=== PATIENT | female | born 1995 | race Caucasian/White ===

== ENCOUNTER 2016-12-20 02:06 | Observation (INO) ==
[2016-12-20] MEDS ORDERED: ONDANSETRON 4 MG/2 ML VIAL ONE (02:31)
[2016-12-20] MEDS ORDERED: ONDANSETRON 4 MG/2 ML VIAL IV STA (02:33)
[2016-12-20] MEDS ORDERED: SODIUM CHLORIDE 0.9% 1,000 ML IV STA ×2 (02:33→04:17)
[2016-12-20] MEDS ORDERED: DIPHENOXYLATE/ATROPINE 2.5-0.025 MG TABLET PO STA (02:40)
[2016-12-20] MEDS ORDERED: DIPHENOXYLATE/ATROPINE 2.5-0.025 MG TABLET ONE (02:43)
[2016-12-20 02:47] LABS: Basophils # 0.1 10*3/uL (0.0-0.2); Basophils % 0.2 % (0.0-0.8); Eosinophils # 0.1 10*3/uL (0.0-0.87); Eosinophils % 0.4 % (0.00-10.9); Hematocrit 43.1 VOL% (35.7-47.0); Hemoglobin 15.5 GM/DL (12.0-16.0); Immature Granulocytes % 0.5 %; Immature Granulocytes Absolute 0.11 #; Lymphocytes # 1.6 10*3/uL (1.4-4.0); Lymphocytes % 7.9 % (21.3-54.2); Mean Corpuscular Hemoglobin 33 PG (27-34); Mean Corpuscular Volume 91.5 FL (87-102); Mean Platelet Volume 10.7 FL (9.6-12.0); Monocytes % 4.9 % (1.7-12.7); Neutrophils # 17.6 10*3/uL (1.4-7.4); Neutrophils % 86.1 % (38.7-73.9); Platelet Count 271 T/CUMM (130-400); Red Blood Count 4.71 MC/CUMM (3.8-5.5); Red Cell Distribution Width 11.9 % (9.3-17.3); White Blood Count 20.5 T/CUMM (4-12)
[2016-12-20 02:58] LABS: Calcium 9.2 MG/DL (8.5-10.1); Magnesium 1.6 MG/DL (1.8-2.4); Osmolality,Calculated 284.3 MOS/KG (273-304); Potassium 3.5 MMOL/L (3.5-5.1)
--- NOTE | 2016-12-20 03:20 | Emergency Department Note ---
Chang Burdick Emily, am scribing for, and in the presence of, Grey Arenas MD 02: 53. Dagoberto Burdick Robert M, MD, personally performed the services described in this documentation, ascribed by Britt Downing in my presence, and it is both accurate and complete 320 . Arrival - Arrival Chief Complaint: Nausea/Vomiting/Diarrhea Stated Complaint: throwing up blood diarrhea ED Nursing Triage Note: Pt to triage via wheelchair with c/o n/v/d. Pt states she is throwing up blood. Mode of Arrival: Wheelchair Limitations: No Limitations Source: Patient - History of Present Illness HPI Narrative: Pt is a 21 y/o female who came to ED with c/o N/V/D and hematemesis that suddenly onset at midnight. Pt notes having abdominal pain, as well. No other complaint/pain in ED. Onset (ago): hour(s) Consistency: constant Severity: mild, moderate Severity scale (1-10): 4 Quality: aching Allergies/Adverse Reactions: Allergies Allergy/AdvReac Type Severity Reaction Status Date / Time No Known Allergies Allergy Unverified 12/20/16 02:13 Home Medications: Home Medications Medication Instructions Recorded Confirmed Type No Known Home Medications [No 12/20/16 12/20/16 History Known Home Medications] Review of System - Review of System 12 point system: reviewed and no additional remarkable complaints except as stated - Review of System Constitutional: Absent: chills, fever Respiratory: Absent: respiratory distress Cardiovascular: Absent: chest pain Gastrointestinal: Present: abdominal pain, nausea, vomiting, diarrhea, hematemesis Musculoskeletal: Absent: arm pain, back pain, leg pain, neck pain Skin: Absent: rash Neurological: Absent: headache Psychiatric: Absent: anxiety Medical,Surgical,& Family Hx - Medical History Hematology: History of: Anemia - Surgical History Abdominal Surgeries: Surgical HX of: Appendectomy (2008) - Family History Family History: noncontributory Family History: Reports;: Family Diabetes (father, grandmother), Family Hypertension (mother), Family Stroke (grandparents) - Social History Smoking Status: Current every day smoker Frequency of Alcohol Use: None Type of Drug Use: Marijuana Marital Status: Single Lives With:: Parent Functional capacity: independent ambulation Exam Vital Signs: Vital Signs Temperature 97.6 F 12/20/16 02:17 Pulse Rate 72 12/20/16 03:12 Respiratory Rate 18 12/20/16 03:12 Blood Pressure 102/78 12/20/16 03:12 O2 Sat by Pulse Oximetry 98 12/20/16 03:12 - General General appearance: alert, in no apparent distress, other (foul odor) - Head Head exam: Present: atraumatic, normocephalic - Eye Eye exam: Present: PERRL, EOMI - ENT ENT exam: Present: mucous membranes dry. Absent: mucous membranes moist - Neck Neck exam: Present: full ROM. Absent: tenderness - Chest Chest inspection: Present: symmetric chest wall rise. Absent: tenderness - Respiratory Respiratory exam: Present: normal lung sounds bilaterally. Absent: respiratory distress - Cardiovascular Cardiovascular exam: Present: regular rate, normal rhythm, normal heart sounds - Abdominal Exam Abdominal exam: Present: soft, tenderness (diffusely). Absent: distention, guarding, rebound - Extremities Exam Extremities exam: Present: full ROM. Absent: tenderness, pedal edema - Neurological Exam Neurological exam: Present: alert, oriented X3, CN II-XII intact. Absent: motor sensory deficit - Psychiatric Psychiatric exam: Present: normal affect, normal mood - Skin Skin exam: Present: warm, dry, pallor. Absent: normal color Course - Consultations Consultation #1: We will admit to observation hospitalist service Dr. Levin notified Time: 03:41 Results - Labs CBC & BMP: 12/20/16 02:21 12/20/16 02:21 Lab Results: I have reviewed the patients labs Labs: Lab Results WBC 20.5 T/CUMM (4-12) H 12/20/16 02:21 RBC 4.71 MC/CUMM (3.8-5.5) 12/20/16 02:21 Hgb 15.5 GM/DL (12.0-16.0) 12/20/16 02:21 Hct 43.1 VOL% (35.7-47.0) 12/20/16 02:21 MCV 91.5 FL (87-102) 12/20/16 02:21 MCH 33 PG (27-34) 12/20/16 02:21 MCHC 36.0 GM/DL (32-36) 12/20/16 02:21 RDW 11.9 % (9.3-17.3) 12/20/16 02:21 Plt Count 271 T/CUMM (130-400) 12/20/16 02:21 MPV 10.7 FL (9.6-12.0) 12/20/16 02:21 Neut % (Auto) 86.1 % (38.7-73.9) H 12/20/16 02:21 Lymph % (Auto) 7.9 % (21.3-54.2) L 12/20/16 02:21 Darke % (Auto) 4.9 % (1.7-12.7) 12/20/16 02:21 Eos % (Auto) 0.4 % (0.00-10.9) 12/20/16 02:21 Baso % (Auto) 0.2 % (0.0-0.8) 12/20/16 02:21 Neut # (Auto) 17.6 10*3/uL (1.4-7.4) H 12/20/16 02:21 Lymph # (Auto) 1.6 10*3/uL (1.4-4.0) 12/20/16 02:21 Darke # (Auto) 1.0 10*3/uL (0.11-0.8) H 12/20/16 02:21 Eos # (Auto) 0.1 10*3/uL (0.0-0.87) 12/20/16 02:21 Baso # (Auto) 0.1 10*3/uL (0.0-0.2) 12/20/16 02:21 Immature Gran % 0.5 % 12/20/16 02:21 Nucleated RBC % 0.0 /100WBC 12/20/16 02:21 Immature Gran # 0.11 # 12/20/16 02:21 Nucleated RBCs # 0.00 10*3/uL 12/20/16 02:21 Sodium 141 MMOL/L (136-145) 12/20/16 02:21 Potassium 3.5 MMOL/L (3.5-5.1) 12/20/16 02:21 Chloride 105 MMOL/L (98-107) 12/20/16 02:21 Carbon Dioxide 25 MMOL/L (21-32) 12/20/16 02:21 Anion Gap 14.5 MMOL/L (5.0-15.0) 12/20/16 02:21 BUN 12 MG/DL (7-18) 12/20/16 02:21 Creatinine 1.00 MG/DL (0.55-1.02) 12/20/16 02:21 GFR Calculation 73 ML/MIN 12/20/16 02:21 BUN/Creatinine Ratio 12.00 RATIO (6.00-20.00) 12/20/16 02:21 Glucose 178 MG/DL (74-106) H 12/20/16 02:21 Calculated Osmolality 284.3 MOS/KG (273-304) 12/20/16 02:21 Calcium 9.2 MG/DL (8.5-10.1) 12/20/16 02:21 Magnesium 1.6 MG/DL (1.8-2.4) L 12/20/16 02:21 Disposition Clinical Impression: Viral gastroenteritis, Dehydration Case discussed with: patient, patient's family Disposition: Still a Patient Condition: Stable Time of Disposition: 03:41
[2016-12-20] MEDS ORDERED: PANTOPRAZOLE 40 MG VIAL IV STA (03:38)
[2016-12-20] MEDS ORDERED: PANTOPRAZOLE 40 MG VIAL IV ONE (03:38)
[2016-12-20] MEDS ORDERED: diphenhydrAMINE CAP 25 MG CAPSULE PO PRN (03:50)
[2016-12-20] MEDS ORDERED: DOCUSATE SODIUM 100 MG CAPSULE PO PRN (03:50)
[2016-12-20] MEDS ORDERED: ZALEPLON 5 MG CAPSULE PO PRN (03:50)
[2016-12-20] MEDS ORDERED: guaiFENesin/DM ER 600-30 MG TABLET PO PRN (03:50)
[2016-12-20] MEDS ORDERED: ACETAMINOPHEN 325 MG TABLET PO PRN (03:50)
[2016-12-20] MEDS ORDERED: NICOTINE 21 MG/24 HR PATCH TRANSDERM PRN (03:50)
[2016-12-20] MEDS ORDERED: MAGNESIUM SULF RIDER 2 GM in PREMIX 1 EACH IV STA (04:06)
[2016-12-20] MEDS ORDERED: MAGNESIUM SULF RIDER 0 ML IV ONE (04:19)
--- NOTE | 2016-12-20 04:36 | Hospitalist History & Physical ---
Assessment and Plan (1) Intractable nausea and vomiting Status: Acute Assessment and plan: Patient denies surreptitious vomiting. She is underweight but that is concerned. Surreptitious vomiting people with eating disorder. Electrolytes are not abnormal therefore chronicity surreptitious vomiting is unlikely. I will check a 4 AM cortisol for possibility of adrenal insufficiency however his high blood sugars 178 I would expect a low sugar than that. We will also check a level for possibility of hyperemesis gravidarum. I did discuss the case with Dr. Arenas to hold off on any radiograph until the test is known. Current Visit: Yes (2) Diarrhea Status: Acute Assessment and plan: This with the program above nausea and vomiting raises possibility of viral gastroenteritis. Norovarus the top of the list. Causes will be preformed bacterial toxin but patient denies eating any leftover food. Will check stool for WBC stool Hemoccult stool cultures to include Yersinia and Campylobacter. Patient should be kept on enteric precautions. Current Visit: Yes (3) Weight loss Status: Acute Assessment and plan: Patient is underweight because of which is unknown. She denies any eating disorders. Current Visit: Yes (4) Hypomagnesemia Status: Acute Current Visit: Yes (5) Leukocytosis Status: Acute Assessment and plan: It could be an acute infection it could be demargination of stress. She is a febrile with low. Hold off antibiotics pending further evaluation. She is known to have an abdominal pelvic CT scan and a chest x-ray if test is negative. Current Visit: Yes (6) Viral gastroenteritis Status: Acute Assessment and plan: As above Current Visit: Yes History of Present Illness Chief complaint: New onset diarrhea/nausea/vomiting/defuse abdominal pain History of present illness: Ms. Jett is a 21 year old local female came to ED with c/o N/V/D and hematemesis that suddenly onset at midnight. Pt notes having abdominal pain, as well. She says she ate freshly cooked rice and yesterday evening unless last thing she remembers did not get anything else left over. She denies being but test is been ordered and is pending, denies any history of making herself vomit. There is no preceding elements of this nausea vomiting and abdominal pain and diarrhea. She has not had these events before. Denies any right has chills or documented fever. Home Medications Medication Instructions Recorded Confirmed Type No Known Home Medications [No 12/20/16 12/20/16 History Known Home Medications] Allergies Allergy/AdvReac Type Severity Reaction Status Date / Time No Known Allergies Allergy Unverified 12/20/16 02:13 Medical,Surgical,& Family Hx - Medical History Hematology: History of: Anemia - Surgical History Abdominal Surgeries: Surgical HX of: Appendectomy (2008) - Family History Family History: Reports;: Family Diabetes (father, grandmother), Family Hypertension (mother), Family Stroke (grandparents) - Social History Smoking Status: Current every day smoker Frequency of Alcohol Use: None Type of Drug Use: Marijuana Review of systems: 12 point system assessment was done. Significant for chief complaint is her presenting illness. Patient looks to be very pale. She is continuously retching as I am at her bedside she is underweight. The rest of assessment is now. Exam - Constitutional Vitals: Period Temp Pulse Resp BP Sys/Stauffer Pulse Ox Last 24 Hr 97.6 F-97.6 F 68-82 18-18 100-116/62-78 98-99 General appearance: mild distress, under weight, other (Generalized malaise) - Head Head exam: Present: normocephalic, atraumatic - Eye Eye exam: Present: EOMI, other (Anicteric sclera no conjunctival petechia) Pupils: Present: SHERMAN - ENT ENT exam: Present: normal oropharynx - Neck Neck exam: Present: normal inspection, other (Supple neck no adenopathy no thyromegaly) - Respiratory Respiratory exam: Present: clear to auscultation bilaterally - Cardiovascular Cardiovascular exam: Present: tachycardia, other (Sinus control) - GI/Abdominal GI/Abdominal exam: Present: normal bowel sounds, soft, other (Diffuse tenderness to guards her abdomen) - Extremities Exam Extremities exam: Present: full ROM - Neurological Exam Neurological exam: Present: alert, oriented X3, CN II-XII intact - Psychiatric Psychiatric exam: Present: other (Subdued affect generalized malaise) - Skin Skin exam: Present: warm, dry, other (Skin pallor) Results - Labs CBC & BMP: 12/20/16 02:21 12/20/16 02:21 Lab Results: I have reviewed the past 24 hour labs (Noted elevated white count of 20,500 with 86% neutrophils hemoglobin 15.5 g percent chemistry done has a normal sodium 141 potassium 3.5 with a normal bicarb of 25 BUN of 12 and creatinine 1.0 with normal liver profile admission was low at 1.6 heart sugar is 178 calculated osmolality of 284. test is pending still. Is been received in the laboratory studies.) - Diagnostic Findings Procedure: CT Abdomen and Pelvis: image reviewed by me (This was done in the ED please see report.)
[2016-12-20] MEDS: DEXTROSE 5% NACL 0.9% 1,000 ML IV SCH ×3 (05:45→20:29)
--- NOTE | 2016-12-20 06:55 | XRay Report ---
XR KUB Indication: Abdominal pain. Abdomen 2 views: No small bowel dilatation. Normal amount of stool and gas projects over the colon, without dilatation. No evidence of free air. No abnormal calcifications or masses. Impression: Negative bowel gas pattern. PROCEDURE INTERPRETED AT [facility] DEPARTMENT OF RADIOLOGY Final Report Signed by: Diego Wilson M.D.
--- NOTE | 2016-12-20 06:59 | CT Report ---
CT abdomen pelvis w con Indication: Generalized abdominal pain. CT ABDOMEN AND PELVIS WITH CONTRAST DLP: 347 mGy*cm. One or more of the following dose reduction techniques was used: Automated exposure control, adjustment of the mA and/or kV according the patient size, or use of iterative reconstruction techniques. Comparison: 07/18/2011 Technique: Axial CT images of the abdomen and pelvis were obtained with IV contrast; Omnipaque 350, 100 cc. Oral contrast was not administered. Abdomen: Normal heart size. Clear lung bases. Liver, spleen, pancreas, adrenal glands and kidneys appear grossly unremarkable. No bowel obstruction identified. No mesenteric edema, free fluid, free air or lymphadenopathy. Pelvis: In the right pelvis, there is a 23 x 17 mm fluid density collection appears to represent a cyst. The left pelvis, there is a 14 mm similar fluid collection, likely a cyst. No free fluid in the pelvis. Urinary bladder and uterus are unremarkable by CT. Rectosigmoid colon appears within normal limits well. Appendix not definitively seen. No right lower quadrant inflammation. As described in the preliminary report, left gonadal vein is slightly prominent in the left renal vein does appear somewhat compressed by the SMA. Impression: 1. Bilateral pelvic cystic structures, likely adnexal in nature. Appendix is not discretely identified but no secondary findings of appendicitis. 2. Prominence of the left gonadal vein appears secondary to minimal compression of the left renal vein from the SMA. PROCEDURE INTERPRETED AT [facility] DEPARTMENT OF RADIOLOGY Final Report Signed by: Diego Wilson M.D.
--- NOTE | 2016-12-20 08:13 | XRay Report ---
XR chest 2V Indication: Leukocytosis. Emesis. Chest 2 views: Heart size and mediastinal contour are normal. There is diffuse mild parabronchial thickening present. No focal infiltrates are shown. Pleural spaces are clear. Bones are intact. Impression: Mild airways disease such as bronchitis or viral syndrome. No focal pneumonia. PROCEDURE INTERPRETED AT [facility] DEPARTMENT OF RADIOLOGY Final Report Signed by: Diego Wilson M.D.
[2016-12-20] MEDS: PANTOPRAZOLE 40 MG TABLET PO SCH (09:00)
[2016-12-20] MEDS: ONDANSETRON 4 MG/2 ML VIAL IV PRN ×2 (10:22→15:36)
[2016-12-20 11:47] LABS: Basophils % 0.1 % (0.0-0.8); Hematocrit 36.5 VOL% (35.7-47.0); Immature Granulocytes % 0.3 %; Immature Granulocytes Absolute 0.03 #; Lymphocytes # 0.6 10*3/uL (1.4-4.0); Lymphocytes % 5.7 % (21.3-54.2); Mean Corpuscular HGB Conc 35.6 GM/DL (32-36); Mean Corpuscular Hemoglobin 33 PG (27-34); Mean Corpuscular Volume 92.2 FL (87-102); Monocytes # 0.4 10*3/uL (0.11-0.8); Neutrophils % 89.9 % (38.7-73.9); Red Blood Count 3.96 MC/CUMM (3.8-5.5)
[2016-12-20 11:52] LABS: Platelet Count 156 T/CUMM (130-400)
[2016-12-20] MEDS ORDERED: PHENOL 1.4% THROAT SPRAY 177 ML BOTTLE PO PRN (15:11)
[2016-12-20 15:35] LABS: Apearance,Urine Slightly Hazy (Clear); Bilirubin,Urine Negative (Negative); Blood, Urine Negative (Negative); Glucose,Urine (UA) Negative (Negative); Ketones,Urine Negative (Negative); Mucus,Urine Occasional /LPF (Occasional); Nitrite,Urine Negative (Negative); Protein,Urine Negative; RBC,Urine <1 /HPF (0-4); Squamous Epithelial Cell,Urine Few /HPF (0-10); Urine Color Yellow (Yellow); Urine Specific Gravity 1.012 (1.001-1.035); Urine Urobilinogen < 2.0 EU/DL (0.2-1.0); WBC,Urine 1 /HPF (0-6)
[2016-12-20] MEDS ORDERED: FAMOTIDINE 20 MG TABLET PO SCH (21:00)
[2016-12-21] MEDS: DEXTROSE 5% NACL 0.9% 1,000 ML IV SCH (03:36)
[2016-12-21 07:52] LABS: Calcium 7.6 MG/DL (8.5-10.1); Osmolality,Calculated 282.8 MOS/KG (273-304); Potassium 3.7 MMOL/L (3.5-5.1)
[2016-12-21] MEDS: PANTOPRAZOLE 40 MG TABLET PO SCH (08:04)
[2016-12-21 12:13] VITALS: BP 98/69
--- NOTE | 2016-12-21 13:21 | Discharge Summary ---
Hospital Course - Hospital Course Hospital Course: This patient was admitted on the above admit date with intractable nausea vomiting and diarrhea that was felt to be related to a gastroenteritis. On admission she was noted to have a leukocytosis with a white blood cell count of 20 but no evidence of bacterial infection have been identified. Further evaluation included a chest x-ray and a CT of the abdomen and pelvis. Chest x- ray did note mild airway disease such as bronchitis or viral syndrome but no focal pneumonia. The patient was not complaining of any pulmonary symptoms. She denied any having any shortness of breath or cough. CT abdomen and pelvis was negative for any acute pathology that could be the underlying etiology of her presenting symptoms. She was admitted and initiated on IV fluids. No antibiotics were given since there was no isolation of bacterial infection. Urinalysis was unremarkable. Stool culture obtained was negative for any enteric pathogens. Of note she did describe burning sensation in her lower esophagus that she felt was related to possible reflux. She was initiated on a PPI IV on admission but later we added Zantac at night. The following morning the patient reports marked improvement in her symptoms. She states that she has had no further episodes of nausea or vomiting. She reports that she can now lay on her right side when previously she could not do to nausea and the sensation of reflux. Her white blood cell count to the following day after hydration returned within normal limits at 10,000. Her diet was advanced and she tolerated this without any difficulty. No nausea no vomiting no diarrhea. Upon evaluation in the afternoon the patient states that she feels like she is ready for discharge with the understanding of taking her anti-reflux medications 1 in the morning(Protonix) and 1 in the evening (Zantac). She voiced an understanding and she will be discharged home to follow-up with her primary doctor for further evaluation of possible reflux that has contributed to her admission symptoms. - Time spent with patient Time with patient DS: Greater than 30 minutes Diagnosis - Discharge Diagnosis (1) Gastroenteritis Status: Resolved (2) Dehydration Status: Resolved (3) Intractable nausea and vomiting Status: Resolved (4) Diarrhea Status: Resolved (5) Hypomagnesemia Status: Resolved (6) Leukocytosis Status: Resolved Discharge Plan - Discharge Data Disposition: Disch To Home/Self Care Condition at Discharge: Stable Discharge Diet: advance to your usual diet Activity: resume usual activities as tolerated Hygiene: no restrictions Weight Bearing at Discharge: full weight bearing Driving: no restrictions Contact your physician if you experience:: fever over 101, Nausea/Vomiting, Bleeding - Discharge Medications New Pantoprazole Tab [Protonix Tab] 40 mg PO DAILY #30 tablet Famotidine Tab [Pepcid Tab] 20 mg PO BEDTIME #30 tablet Phenol 1.4% Throat [place] [Chloraseptic [place]] 5 spray PO Q2H PRN bottle PRN Reason: Sore Throat No Action raNITIdine HCl [Ranitidine HCl] 150 mg PO BEDTIME - Follow Up or Referral - Forms/Instructions Additional Discharge Instructions: Follow-up with primary care within 2 weeks of discharge for evaluation of GERD (Reflux). Exam - Constitutional Vitals: Period Temp Pulse Resp BP Sys/Stauffer Pulse Ox Last 24 Hr 97.7 F-98.6 F 66-79 16-22 90-107/45-69 94-100 Exam: General appearance: Underweight. NAD - Respiratory Respiratory exam: Present: clear to auscultation bilaterally - Cardiovascular Cardiovascular exam: Present: RRR without murmur - GI/Abdominal GI/Abdominal exam: Present: normal bowel sounds, soft - Extremities Exam Extremities exam: Present: full ROM - Neurological Exam Neurological exam: Present: alert, oriented X3, CN II-XII intact - Skin Skin exam: Present: warm, dry Discharge Results Procedures and tests throughout hospitalization: Pending Orders 12/20/16 04:36 Norovirus, Stool Routine 12/20/16 10:25 Stool Culture/Campy/Yersinia Routine 12/20/16 15:20 Urine Culture Stat Labs on day of discharge: Labs from last 24 hours 12/21/16 12/20/16 07:07 15:20 Sodium 144 Potassium 3.7 Chloride 115 H Carbon Dioxide 23 Anion Gap 9.7 BUN 3 L Creatinine 0.80 GFR Calculation 96 BUN/Creatinine Ratio 3.00 L Glucose 98 Calculated Osmolality 282.8 Calcium 7.6 L Magnesium 2.0 Urine Color Yellow Urine Appearance Slightly hazy Urine pH 7.0 Ur Specific Purdy 1.012 Urine Protein Negative Urine Glucose (UA) Negative Urine Ketones Negative Urine Blood Negative Urine Nitrate Negative Urine Bilirubin Negative Urine Urobilinogen < 2.0 H Urine Leukocytes Negative Urine RBC <1 Urine WBC 1 Ur Squamous Epith Cells Few Urine Mucus Occasional Ur Culture Indicated? Not indicated Preliminary micro results at discharge 12/20/16 10:25 Stool Culture - Preliminary Stool - Stool No enteric pathogens at 24 hrs DS: Provider Date of admission: 12/20/16 03:50 Primary care physician: . No PCP Attending physician on admission: Aden Levin MD Discharging clinician: Sarah Mark MD Expected date of discharge: 12/21/16
== END 2016-12-21 13:45 | disposition home or self-care (01) ==
LOC: N.ED 02:06 → N.EDINP 02:06 → SUATTDRO 03:50 → N.2E 04:16
PROVIDERS: ADMIT Internal Medicine Infectious Disease; ATTEND Internal Medicine